=== PATIENT | male | born 1960 | race African-American/Black ===

== ENCOUNTER 2023-06-14 06:50 | Day surgery (SDC) | payer MEDICAID ==
[~2023-06-14] VITALS: Ht 180.3 cm; Wt 81.8 kg
[~2023-06-14 06:50] MED LIST: BALANCED SALT 15 ML OPHTHALMIC IRRIG.SOLN ONE; KETOROLAC TROMETHAMINE 0.5% 5 ML OPHTHALMIC SOLUTION ONE; MOXIFLOXACIN HCL 0.5% 3 ML OPHTHALMIC SOLUTION ONE; PHENYLEPHRINE HCL 2.5% 2 ML OPHTHALMIC SOLUTION ONE; POVIDONE-IODINE 5% 30 ML OPHTHALMIC SOLUTION ONE; RINGERS SOLUTION,LACTATED 500 ML IV ONE; TROPICAMIDE 1% 2 ML OPHTHALMIC SOLUTION ONE
[2023-06-14] MEDS ORDERED: HYALURONATE SOD 8.5MG/0.85ML 10 MG/ML SYRINGE IO ONE (06:51)
[2023-06-14] MEDS ORDERED: FentaNYL CITRATE PF 100 MCG/2 ML VIAL IVP ONE (06:51)
[2023-06-14] MEDS ORDERED: BALANCED SALT 15 ML OPHTHALMIC IRRIG.SOLN OU ONE (06:51)
[2023-06-14] MEDS ORDERED: MIDAZOLAM HCL 2 MG/2 ML VIAL IVP ONE (06:51)
[2023-06-14] MEDS ORDERED: CHONDR SULF A SOD/HYALURONATE 1.05 ML KIT IO ONE (06:51)
[2023-06-14] MEDS: PHENYLEPHRINE HCL 2.5% 2 ML OPHTHALMIC SOLUTION OD SCH (07:33)
[2023-06-14] MEDS: TROPICAMIDE 1% 2 ML OPHTHALMIC SOLUTION OD SCH (07:33)
[2023-06-14] MEDS: KETOROLAC TROMETHAMINE 0.5% 5 ML OPHTHALMIC SOLUTION OD SCH (07:33)
[2023-06-14] MEDS: MOXIFLOXACIN HCL 0.5% 3 ML OPHTHALMIC SOLUTION OD SCH (07:34)
[2023-06-14] MEDS: RINGERS SOLUTION,LACTATED 500 ML IV ONE ×2 (07:34→07:52)
[2023-06-14] MEDS: TETRACAINE HCL/PF 0.5% 4 ML OPHTHALMIC SOLUTION ONE (09:10)
[2023-06-14] MEDS: LIDOCAINE/PF 1% 2 ML VIAL ONE (09:10)
[2023-06-14] MEDS: EPINEPHrine 1:1,000 [1 MG/ML] VIAL ONE (09:10)
== END 2023-06-14 10:10 | disposition home or self-care (01) ==
LOC: SURGERY 06:50
PROVIDERS: ATTEND Ophthalmology
DX: H25.11 Age-related nuclear cataract, right eye (principal); E78.00 Pure hypercholesterolemia, unspecified; Z79.899 Other long term (current) drug therapy; Z98.890 Other specified postprocedural states; Z98.41 Cataract extraction status, right eye; Z98.42 Cataract extraction status, left eye
CPT/HCPCS: 93005; 66984; J0171; J3010; J3490; J2250; Q9967; J7120; V2632

== ENCOUNTER 2023-07-12 07:34 | Day surgery (SDC) | payer MEDICAID ==
[~2023-07-12] VITALS: Ht 180.3 cm; Wt 81.4 kg
[~2023-07-12 07:34] MED LIST changes: +EPINEPHrine 1:1,000 [1 MG/ML] VIAL ONE; +LIDOCAINE/PF 1% 2 ML VIAL ONE; +TETRACAINE HCL/PF 0.5% 4 ML OPHTHALMIC SOLUTION ONE
[2023-07-12] MEDS ORDERED: FentaNYL CITRATE PF 100 MCG/2 ML VIAL IVP ONE (07:35)
[2023-07-12] MEDS ORDERED: MIDAZOLAM HCL 2 MG/2 ML VIAL IVP ONE (07:35)
[2023-07-12] MEDS ORDERED: BALANCED SALT 15 ML OPHTHALMIC IRRIG.SOLN IO ONE (07:35)
[2023-07-12] MEDS ORDERED: CHONDR SULF A SOD/HYALURONATE 1.05 ML KIT IO ONE (07:35)
[2023-07-12] MEDS ORDERED: GLYCOPYRROLATE 0.2 MG/ML VIAL IM ONE (07:35)
[2023-07-12] MEDS: RINGERS SOLUTION,LACTATED 500 ML IV ONE (08:14)
[2023-07-12] MEDS: TROPICAMIDE 1% 2 ML OPHTHALMIC SOLUTION OS SCH (08:14)
[2023-07-12] MEDS: KETOROLAC TROMETHAMINE 0.5% 5 ML OPHTHALMIC SOLUTION OS SCH (08:14)
[2023-07-12] MEDS: PHENYLEPHRINE HCL 2.5% 2 ML OPHTHALMIC SOLUTION OS SCH (08:14)
[2023-07-12] MEDS: MOXIFLOXACIN HCL 0.5% 3 ML OPHTHALMIC SOLUTION OS SCH (08:14)
== END 2023-07-12 11:30 | disposition home or self-care (01) ==
LOC: SURGERY 07:34
PROVIDERS: ATTEND Ophthalmology
DX: H25.12 Age-related nuclear cataract, left eye (principal); E78.00 Pure hypercholesterolemia, unspecified; N40.0 Benign prostatic hyperplasia without lower urinary tract symptoms; M54.30 Sciatica, unspecified side; Z98.890 Other specified postprocedural states; Z79.899 Other long term (current) drug therapy
CPT/HCPCS: 66984; J0171; J3010; J3490 ×2; J2250; Q9967; J7120; V2632